=== PATIENT | male | born 1995 | race Two or more races ===

== ENCOUNTER 2021-12-17 21:12 | Emergency (ER) | payer MEDICAID ==
[2021-12-17 22:17] LABS: CARBON DIOXIDE,CO2 26.2 mmol/L (21.0-32.0); POTASSIUM,K 3.6 mmol/L (3.5-5.1)
[2021-12-17] MEDS ORDERED: Alum Hydro/Mag Hydro/Simeth XS 15 ML, Lidocaine 2% 5 ML PO ONE ×2 (22:24)
== END 2021-12-17 22:50 | disposition home or self-care (01) ==
LOC: MW.ED 21:12
DX: R07.9 Chest pain, unspecified (principal); Z88.0 Allergy status to penicillin
CPT/HCPCS: 36415; 71045; 80053; 84484; 85025; 93005; 99285; A9270